=== PATIENT | male | born 1990 | race African-American/Black ===

== ENCOUNTER 2021-12-04 18:15 | Emergency (ER) | payer OTHER, SELFPAY ==
[2021-12-04 18:57] VITALS: BP 135/67; PULSE 75; RESP 16; TEMP 36.5; O2SAT 100
--- NOTE | 2021-12-04 19:36 | ED.HEATRA ---
HPI - Head Injury General Chief complaint: Head Injury Stated complaint: head injury at work Time Seen by Provider: 12/04/21 19:37 Source: patient Mode of arrival: ambulatory Limitations: no limitations History of Present Illness HPI Narrative: The patient is a 31 yo male presenting to the ER for evaluation following head trauma this afternoon. Pt hit his head on his work van's back door on his left head. No LOC. No vision changes. Pt denies n/v. No focal weakness or numbness. Pt had a transient episode of lightheadness that occurred while he was driving after he hit his head which resolved. Pt without any palpitations, chest pain. He is not anticoagulated. No neck pain. He denies facial droop or palsy. No difficulty with speech. Related Data Allergies Allergy/AdvReac Type Severity Reaction Status Date / Time No Known Allergies Allergy Verified 12/04/21 18:59 Review of Systems Review of Systems: CONSTITUTIONAL: Denies fever CARDIOVASCULAR: Denies chest pain RESPIRATORY: Denies cough or dyspnea. GASTROINTESTINAL: Denies abdominal pain SKIN: Denies rash MUSCULOSKELETAL: Denies back pain NEUROLOGIC: Denies headache, reports point tenderness at left [facility] Social History Social History Smoking status: Never smoker Second hand tobacco smoke exposure: No Alcohol intake: never Exam Narrative: GENERAL: Awake, alert, conversant HEAD: Normocephalic, atraumatic. EYES: PERRLA and EOMI. ENT: Nares clear, no rhinorrhea or epistaxis. Mucous membranes moist. NECK: Supple. CHEST: No respiratory distress, breathing even and non labored HEART: Regular rate, sinus rhythm ABDOMEN:Non distended, non tender EXTREMITIES: Normal range of motion. No edema. SKIN: Warm, dry, no rash. NEURO:No focal deficits. Alert and oriented x3. Finger to nose intact bilaterally. EOMs intact without nystagmus. No facial droop/asymmetry noted bilaterally. Grimace intact. Intact sensation in face. Hearing intact bilaterally. Shoulder shrug intact. Strength 5/5 bilateral upper extremities. Strength 5/5 bilateral lower extremities. Reflexes 2+ patellar. Heel to kaufman intact bilaterally. Ambulatory with a narrow base, steady gait, no ataxia. Course Vital Signs Vital signs: Vital Signs Temperature 36.5 C 12/04/21 18:57 Pulse Rate 75 12/04/21 18:57 Respiratory Rate 16 12/04/21 18:57 Blood Pressure 135/67 12/04/21 18:57 Pulse Oximetry 100 12/04/21 18:57 Temperature 36.5 C 12/04/21 18:57 Pulse Rate 75 12/04/21 18:57 Respiratory Rate 16 12/04/21 18:57 Blood Pressure 135/67 12/04/21 18:57 Pulse Oximetry 100 12/04/21 18:57 Oxygen Delivery Room Air 12/04/21 19:26 MDM - Head Injury MDM Narrative Medical decision making narrative: Patient presented for evaluation of a low mechanism head injury without any focal deficits on exam or concerning symptoms such as headache, nausea, vomiting. Patient has a normal neurological exam. He did not have a loss of consciousness, this was not a high mechanism injury. Patient with mild point tenderness on exam without evidence of cephalhematoma or scalp hematoma. Patient without midline cervical tenderness. Patient likely does have a mild concussion, and this is not consistent with an intracranial injury or an epidural hematoma. There is no plan to obtain CT head given mild nature of injury and mild symptoms. Patient did not have any chest pain, lightheadedness, shortness of breath or other concerning features. No recurrent symptoms. Patient counseled on concussion symptoms. He was then discharged home in stable condition. Differential Diagnosis Differential diagnosis: Likely concussion without loss of consciousness, closed head injury and postconcussion syndrome Discharge Plan Discharge Clinical Impression: Concussion without loss of consciousness Patient Disposition: Home, Self-Care Condition: Stable Instruc
[2021-12-04 20:27] VITALS: BP 117/67; PULSE 71; RESP 16; O2SAT 98
== END 2021-12-04 20:27 | disposition home or self-care (01) ==
LOC: ANHED 20:20
PROVIDERS: Emergency Provider Emergency Medicine
DX: S06.0X0A Concussion without loss of consciousness, initial encounter (principal); W22.8XXA Striking against or struck by other objects, initial encounter
CPT/HCPCS: 99283